=== PATIENT | female | born 1950 | race Asian ===

== ENCOUNTER 2016-11-18 16:05 | Outpatient (CLI) | payer MEDICAID | END 2016-11-18 16:06 | disposition home or self-care (01) | DX: R30.0 Dysuria (principal) ==

== ENCOUNTER 2021-01-19 12:33 | Outpatient (CLI) | payer MEDICARE, OTHER ==
--- NOTE | 2021-01-19 13:53 | DEXA Report ---
PROCEDURE: Dexa Spine and/or Hip INDICATIONS: OSTEOPOROSIS TECHNIQUE: Dual energy x-ray absorptiometry (DXA) was performed on a [employer] System. Regions measur ed are the AP Spine, femoral neck, and if needed forearm. COMPARISON: None. FINDINGS: Lumbar Spine: Bone Mineral Density 1.050 g/cm/cm,T score -1.1, osteopenia Left Hip: Bone Mineral Density 0.962 g/cm/cm,T score -0.4, normal Left Femoral Neck: Bone Mineral Density 0.927 g/cm/cm, T score -0.8, normal (T score greater or equal to -1.0: NORMAL) (T score from -1.1 to -2.4: OSTEOPENIA) (T score less than or equal to -2.5 to: OSTEOPOROSIS) Impression: Normal bone mineral density at the left hip overall, and the left femoral neck. Mild oste openia noted at the lumbosacral spine overall. Patients with diagnosis of osteoporosis or osteopenia should have regular bone mineral density assess ment. For those eligible for Medicare, routine testing is allowed once every 2 years. Testing frequ ency can be increased for patients who have rapidly progressing disease or for those who are receivin g medical therapy to restore bone mass. Reviewed by: Sina Forte MD on 01/19/2021 1:52 PM PDT Approved by: Sina Forte MD on 01/19/2021 1:52 PM PDT Station ID: [id number]
== END 2021-01-19 12:34 | disposition home or self-care (01) ==
LOC: DI 12:33
PROVIDERS: ATTEND Physician Assistant
DX: M85.88 Other specified disorders of bone density and structure, other site (principal)

== ENCOUNTER 2021-01-26 13:47 | Outpatient (CLI) | payer MEDICARE, OTHER ==
--- NOTE | 2021-01-27 12:24 | Mammography Report ---
BILATERAL DIGITAL SCREENING MAMMOGRAM 3D/2D WITH EXAGGERATED CC: 01/26/2021 CLINICAL: Routine screening. Routine screening. Comparison is made to exams dated: 10/06/2016 mammogram and 05/06/2014 mammogram - [facility]. The tissue of both breasts is predominantly fatty. No significant masses, calcifications, or other findings are seen in either breast. There has been no significant interval change. IMPRESSION: NEGATIVE There is no mammographic evidence of malignancy. A 1 year screening mammogram is recommended. This exam was interpreted at Station ID: [id number]. NOTE: For mammograms, a report in lay terms will be sent to the patient. Approximately 15% of breast malignancies will not be visualized mammographically. In the management of a palpable breast mass, a negative mammogram must not discourage biopsy of a clinically suspicious lesion. Electronically Signed By: Phoebe cotter/penrad:01/26/2021 14:30:39 ACR BI-RADS Category 1: Negative 3341F PARENCHYMAL PATTERN: (F) - The breast(s) demonstrate(s) diffuse fatty replacement. BI-RADS CATEGORY: (1) - 1 RECOMMENDATION: (ANNUAL) - Recommend routine annual screening mammography. [id number] 1 year screening LATERALITY: (B)
== END 2021-01-26 13:48 | disposition home or self-care (01) ==
LOC: DI.S 13:47
PROVIDERS: ATTEND Physician Assistant
DX: Z12.31 Encounter for screening mammogram for malignant neoplasm of breast (principal)

== ENCOUNTER 2021-02-22 14:29 | Outpatient (CLI) | payer MEDICARE, OTHER ==
--- NOTE | 2021-02-22 18:02 | Ultrasound Report ---
PROCEDURE: Pelvic w/Transvaginal INDICATIONS: LEIOMYOMA OF UTERUS, FAMILY HX OF UTERINE CANCER TECHNIQUE: Real-time scanning was performed of the pelvic organs, with image documentation. Additional endovagi nal scanning was necessary due to incomplete visualization of the adnexal and endometrial structures by transabdominal scanning. COMPARISON: 10/05/2016, 08/28/2014 FINDINGS: No pathologic free abdominal or pelvic fluid. Uterus: Uterus is normal in size at 4.9 x 1.8 x 5.1 cm. The endometrium measures 2 mm in combined t hickness. The uterus is heterogeneous and demonstrates a right mid pedunculated fibroid that measures 1.9 x 1.2 x 2.2 cm, which previously measured 1.9 x 1.7 x 1.6 cm. Several small calcifications can be seen within the region of the cervix, including a cluster that me asures up to 1 cm. Ovaries: The right ovary measures 2.3 x 1.4 x 1.9 cm and the left ovary measures 1.1 x 1.2 x 0.9 cm, and demonstrates a dominant follicle that measures up to 1 cm, which is considered to be within p hysiologic limits. No significant ovarian abnormalities are seen. There are less than 12 follicles s een on each side. No adnexal masses are seen. IMPRESSION: Slight interval increase in size of the patient's known pedunculated uterine fibroid. Area of calcification seen within the region of the cervix, which are similar to prior. No significant ovarian abnormality can be seen. Reviewed by: Joon Shirley MD on 02/22/2021 5:00 PM HARDIK Approved by: Joon Shirley MD on 02/22/2021 5:00 PM HARDIK Station ID: [id number]
== END 2021-02-22 14:30 | disposition home or self-care (01) ==
LOC: DI 14:29
PROVIDERS: ATTEND Obstetrics & Gynecology
DX: D25.9 Leiomyoma of uterus, unspecified (principal); N88.8 Other specified noninflammatory disorders of cervix uteri; Z80.49 Family history of malignant neoplasm of other genital organs

== ENCOUNTER 2022-03-01 08:32 | Outpatient (CLI) | payer MEDICARE, OTHER ==
[2022-03-01 15:18] LABS: ALBUMIN 4.4 g/dL (3.2-5.5); ALBUMIN/GLOBULIN RATIO 1.9 (1.0-2.2); ALKALINE PHOSPHATASE 51 IU/L (42-121); ALT ALANINE AMINOTRANSFERASE 24 IU/L (10-60); AST ASPARTATE AMINOTRANSFERASE 21 IU/L (10-42); BILIRUBIN,TOTAL 0.7 mg/dL (0.2-1.0); BUN - BLOOD UREA NITROGEN 16 mg/dL (6-20); CALCIUM 9.7 mg/dL (8.5-10.3); CARBON DIOXIDE - CO2 24 mmol/L (21-32); CHLORIDE 105 mmol/L (101-111); CHOLESTEROL 192 mg/dL; CREATININE 0.6 mg/dL (0.4-1.0); GFR - MDRD 99 (>89); GLUCOSE 101 mg/dL (70-100); HDL CHOLESTEROL 96 mg/dL; LDL CHOLESTEROL,CALCULATED 82 mg/dL; LDL/HDL RATIO 0.9 (<4.4); POTASSIUM 4.2 mmol/L (3.5-5.0); SODIUM 138 mmol/L (135-145); TOTAL PROTEIN 6.7 g/dL (6.7-8.2); TRIGLYCERIDES 70 mg/dL; VLDL CHOLESTEROL 14 mg/dL
== END 2022-03-01 08:33 | disposition home or self-care (01) ==
LOC: LAB.S 08:32
PROVIDERS: ATTEND Physician Assistant
DX: E78.5 Hyperlipidemia, unspecified (principal)
CPT/HCPCS: 36415; 80053; 80061; 83721

== ENCOUNTER 2023-01-24 14:03 | Outpatient (CLI) | payer MEDICARE, OTHER ==
--- NOTE | 2023-01-25 09:04 | Mammography Report ---
BILATERAL DIGITAL SCREENING MAMMOGRAM 3D/2D: 01/24/2023 CLINICAL: Routine screening. Comparison is made to exams dated: 01/26/2021 mammogram and 10/06/2016 mammogram - [facility]. Both breasts are almost entirely fatty (category a/<25% glandular tissue). No significant masses, calcifications, or other findings are seen in either breast. There has been no significant interval change. IMPRESSION: NEGATIVE There is no mammographic evidence of malignancy. A 1 year screening mammogram is recommended. Based on the Tyrer Cuzick model (a risk assessment model) the patients lifetime risk is 3.7% and her 10 year risk is 2.3%. According to the ACR, ACS, and NCCN guidelines, an annual breast MRI exam katherine g with mammogram is recommended if the patients lifetime risk is 20% or greater. This exam was interpreted at Station ID: [id number]. NOTE: For mammograms, a report in lay terms will be sent to the patient. Approximately 15% of breast malignancies will not be visualized mammographically. In the management of a palpable breast mass, a negative mammogram must not discourage biopsy of a clinically suspicious lesion. Electronically Signed By: Glenroy Morel M.D. atolga/[email or web address]:01/24/2023 18:10:14 letter sent: No_Letter ACR BI-RADS Category 1: Negative 3341F PARENCHYMAL PATTERN: (F) - The breast(s) demonstrate(s) diffuse fatty replacement. BI-RADS CATEGORY: (1) - 1 Mammogram [id number] 1 year screening LATERALITY: (B)
== END 2023-01-24 14:04 | disposition home or self-care (01) ==
LOC: DI.S 14:03
DX: Z12.31 Encounter for screening mammogram for malignant neoplasm of breast (principal)

== ENCOUNTER 2024-05-16 12:57 | Outpatient (CLI) | payer MEDICARE, OTHER ==
--- NOTE | 2024-05-17 09:00 | Mammography Report ---
BILATERAL DIGITAL SCREENING MAMMOGRAM 3D/2D: 05/16/2024 CLINICAL: Routine screening. Comparison is made to exams dated: 01/24/2023 mammogram, 01/26/2021 mammogram, and 10/06/2016 mammogra m - [facility]. Both breasts are almost entirely fatty (category a/<25% glandular tissue). No significant masses, calcifications, or other findings are seen in either breast. There has been no significant interval change. IMPRESSION: NEGATIVE There is no mammographic evidence of malignancy. A 1 year screening mammogram is recommended. Based on the Tyrer Cuzick model (a risk assessment model) the patient's lifetime risk is 3.5% and her 10 year risk is 2.4%. According to the ACR, ACS, and NCCN guidelines, an annual breast MRI exam katherine g with mammogram is recommended if the patient's lifetime risk is 20% or greater. This exam was interpreted at Station ID: [id number]. NOTE: For mammograms, a report in lay terms will be sent to the patient. Approximately 15% of breast malignancies will not be visualized mammographically. In the management of a palpable breast mass, a negative mammogram must not discourage biopsy of a clinically suspicious lesion. Electronically Signed By: Kirt brown/gabriel:05/16/2024 14:45:32 letter sent: No_Letter ACR BI-RADS Category 1: Negative 3341F PARENCHYMAL PATTERN: (F) - The breast(s) demonstrate(s) diffuse fatty replacement. BI-RADS CATEGORY: (1) - 1 RECOMMENDATION: (ANNUAL) - Recommend routine annual screening mammography. [id number] 1 year screening LATERALITY: (B)
== END 2024-05-16 12:58 | disposition home or self-care (01) ==
LOC: DI.S 12:57
PROVIDERS: ATTEND Registered Nurse
DX: Z12.31 Encounter for screening mammogram for malignant neoplasm of breast (principal)

== ENCOUNTER 2024-07-05 10:43 | Outpatient (CLI) | payer MEDICARE, OTHER ==
--- NOTE | 2024-07-05 16:35 | DEXA Report ---
PROCEDURE: Dexa Spine and/or Hip INDICATIONS: OSTEOPENIA TECHNIQUE: Dual energy x-ray absorptiometry (DEXA) was performed in the regions detailed below. COMPARISON: 01/19/2021 FINDINGS: Lumbar Spine: Bone Mineral Density 1.052 g/cm/cm,T score -1.1. Previously -1.1 Left Femoral Neck: Bone Mineral Density 0.923 g/cm/cm, T score -0.8. Previously -0.8 Left Total Hip: Bone Mineral Density 0.99 g/cm/cm,T score -0.1. Previously -0.4 FRAX 10-year Fracture Risk Assesment Tool 10 year risk of major osteoporotic fracture: 8.9% 10 year risk of hip fracture: 1.0% (T score greater or equal to -1.0: NORMAL) (T score from -1.1 to -2.4: OSTEOPENIA) (T score less than or equal to -2.5 to: OSTEOPOROSIS) IMPRESSION: Lumbar spine osteopenia, stable Patients with diagnosis of osteoporosis or osteopenia should have regular bone mineral density assess ment. For those eligible for Medicare, routine testing is allowed once every 2 years. Testing frequ ency can be increased for patients who have rapidly progressing disease or for those who are receivin g medical therapy to restore bone mass. Reviewed by: Nikhil Coronado MD on 07/05/2024 3:33 PM HARDIK Approved by: Nikhil Coronado MD on 07/05/2024 3:33 PM HARDIK Station ID: [id number]
== END 2024-07-05 10:44 | disposition home or self-care (01) ==
LOC: DI 10:43
PROVIDERS: ATTEND Registered Nurse
DX: M85.88 Other specified disorders of bone density and structure, other site (principal); Z78.0 Asymptomatic menopausal state